=== PATIENT | male | born 1950 | race Caucasian/White ===

== ENCOUNTER 2017-09-10 05:47 | Inpatient (IN) | payer OTHER ==
[2017-09-10] MEDS ORDERED: LIDOCAINE 1% 2 ML INJ ONE (06:00)
[2017-09-10] MEDS ORDERED: TRANEXAMIC ACID 3,000 MG in NS 50 ML IRR ONE (06:00)
[2017-09-10] MEDS ORDERED: POVIDONE-IODINE 20 ML in SODIUM CL IRRIG SOLUTION 500 ML IRR ONE (06:00)
[2017-09-10] MEDS ORDERED: ROPIVACAINE 0.2% 80 MG, EPINEPHrine 0.2 MG, KETOROLAC TROMETHAMINE 30 MG in BAG 0 ML IU ONE (06:00)
[2017-09-10] MEDS ORDERED: ACETAMINOPHEN 325 MG TAB PO ONE (06:06)
[2017-09-10] MEDS ORDERED: ceFAZolin 2 GM/SWFI 2 GM/20 ML SYR IVP ONE (06:06)
[2017-09-10] MEDS ORDERED: FAMOTIDINE 20 MG TAB PO ONE (06:06)
[2017-09-10] MEDS ORDERED: DEXAMETHASONE 4 MG/ML VIAL IVP ONE (06:06)
[2017-09-10] MEDS ORDERED: LIDOCAINE 1% 2 ML INJ ID PRN (06:07)
[2017-09-10] MEDS ORDERED: LR 1,000 ML IV ONE (06:07)
[2017-09-10] MEDS ORDERED: VANCOMYCIN 1 GM VIAL ONE (06:55)
[2017-09-10] MEDS ORDERED: ceFAZolin 1 GM/5 ML SYR ONE (06:56)
[2017-09-10] MEDS ORDERED: MIDAZOLAM 2 MG/2 ML VIAL IVP ONE (07:03)
[2017-09-10] MEDS ORDERED: fentaNYL 100 MCG/2 ML INJ ONE (07:08)
--- NOTE | 2017-09-10 07:11 | PDHPUP ---
History & Physical Update H&P update statement: This history and physical update is based on an assessment of the patient which was completed after admission or registration (within 24 hours), but prior to the surgery/procedure. H&P update: H&P reviewed & patient examined, no change in patient's condition since H&P completed
[2017-09-10] MEDS ORDERED: PROPOFOL/EMULSION 500 MG/50 ML BOTTLE IV ONE (07:31)
[2017-09-10] MEDS ORDERED: ALBUTEROL 3 ML DEYVIAL IH PRN (08:19)
[2017-09-10] MEDS ORDERED: HYDROmorphONE/DILAUDID 1 MG/ML INJ IVP PRN (08:19)
[2017-09-10] MEDS ORDERED: fentaNYL 100 MCG/2 ML INJ IVP PRN (08:19)
[2017-09-10] MEDS ORDERED: NALOXONE HCL 0.4 MG/ML INJ IVP PRN (08:19)
[2017-09-10] MEDS ORDERED: ONDANSETRON 4 MG/2 ML VIAL IVP PRN ×2 (08:19→09:42)
[2017-09-10] MEDS ORDERED: PROMETHAZINE HCL 25 MG/ML INJ IVP PRN ×2 (08:19→09:42)
--- NOTE | 2017-09-10 08:19 | PDANEPAE ---
ANE History of Present Illness here for L TKA ANE Past Medical History - Cardiovascular History Hx Hypertension: Yes Hx Arrhythmias: Yes Hx Chest Pain: No Hx Coronary Artery / Peripheral Vascular Disease: Yes Hx CHF / Valvular Disease: No Hx Palpitations: No Cardiovascular History Comment: CARDIAC ARREST 2014. ICD IMPLANT 2014 - Pulmonary History Hx COPD: No Hx Asthma/Reactive Airway Disease: No Hx Recent Upper Respiratory Infection: No Hx Oxygen in Use at Home: No O2 in Use at Home (L/minute): O2 CONCENTRATOR NOC Hx Sleep Apnea: Yes Sleep Apnea Screening Result - Last Documented: Positive Pulmonary History Comment: SLEEP APNEA POS - Neurologic History Hx Cerebrovascular Accident: No Hx Seizures: No Hx Dementia: No - Endocrine History Hx Diabetes: No - Renal History Hx Renal Disorders: No - Liver History Hx Hepatic Disorders: No - Neurological & Psychiatric Hx Hx Neurological and Psychiatric Disorders: No - Cancer History Hx Cancer: No - Congenital Disorder History Hx Congenital Disorders: No - GI History Hx Gastrointestinal Disorders: Yes Gastrointestinal History Comment: GERD - Other Health History Other Health History: ECZEMA - Chronic Pain History Chronic Pain: No - Surgical History Prior Surgeries: SKULL HEMANGIOMA REMOVED. HERNIA L W/MESH. ELBOW FX REPAIR. ICD IMPLANTED 2014 ANE Review of Systems Review of systems is: negative Review of Systems: - Exercise capacity METS (RN): 4 METS - Pacemaker Pacemaker Type: Permanent Pacer/Defib Pacemaker Fax Machine Repairer: Medtronic Pacemaker Model: [id number] Date Pacemaker Last Checked: 08/10/17 ANE Patient History - Allergies Allergies/Adverse Reactions: esmolol Allergy (Verified 08/13/15 06:54) hydralazine Allergy (Verified 08/15/15 09:15) lisinopril Allergy (Verified 08/26/17 10:00) Swelling/neck,face,throat shellfish derived Allergy (Verified 08/26/17 10:00) - Home Medications Home Medications: [place]-3 Fatty Acids [Fish Oil 1000 mg (*)] 1,000 mg PO DAILY 08/09/15 [Last Taken 08/11/17] Aspirin [Aspirin 325 mg (*)] 325 mg PO DAILY 08/26/17 [Last Taken 09/05/17] Cyanocobalamin [Vitamin B12 (*)] 1,000 mcg PO DAILY 08/26/17 [Last Taken ] Herbals/Supplements -Info Only 1 ea PO DAILY 08/26/17 [Last Taken 09/03/17] Losartan Potassium [Cozaar 25 mg (*)] 25 mg PO DAILY 08/26/17 [Last Taken ] Omeprazole [Prilosec 20 mg] 40 mg PO DAILY 08/26/17 [Last Taken 09/10/17] - NPO status NPO Since - Liquids (Date): 09/09/17 NPO Since - Liquids (Time): 19:30 NPO Since - Solids (Date): 09/09/17 NPO Since - Solids (Time): 19:30 - Smoking Hx Smoking Status: Never smoked - Family Anes Hx Family Hx Anesthesia Complications: NEG ANE Labs/Vital Signs - Vital Signs Blood Pressure: 153/106 Heart Rate: 65 Respiratory Rate: 16 O2 Sat (%): 94 Height: 187.96 cm Weight: 97.522 kg ANE Physical Exam - Airway Neck exam: FROM Mallampati Score: Class 1 Mouth exam: normal dental/mouth exam - Pulmonary Pulmonary: no respiratory distress - Cardiovascular Cardiovascular: regular rate and rhythym - ASA Status ASA Status: III ANE Anesthesia Plan Anesthesia Plan: spinal Regional Anesthesia: adductor canal FNB
[2017-09-10] MEDS ORDERED: PROPOFOL 200 MG/20 ML VIAL ONE ×2 (08:35→09:21)
--- NOTE | 2017-09-10 09:23 | POSTOPPROG ---
Post Op Note Date of Operation: 09/10/17 Surgeon: [facility] Coordinator: Isaak Tena Anesthesiologist: Dr. Simba Mayorga Anesthesia: IV Sedation, Spinal Post-op Diagnosis: Left knee severe degenerative arthritis. Procedure: Left total knee arthroplasty. Inf/Abcess present in the surg proc area at time of surgery?: No EBL: 50-100 (Adductor canal block in PACU)
[2017-09-10] MEDS ORDERED: BISACODYL 10 MG SUPP PR PRN (09:42)
[2017-09-10] MEDS ORDERED: POLYETHYLENE GLYCOL 3350 17 GM PKT PO PRN (09:42)
[2017-09-10] MEDS ORDERED: METOCLOPRAMIDE 10 MG/2 ML VIAL IVP PRN (09:42)
[2017-09-10] MEDS ORDERED: MAGNESIUM HYDROXIDE 30 ML UDCUP PO PRN (09:42)
[2017-09-10] MEDS ORDERED: oxyCODONE IR 5 MG TAB PO PRN (09:42)
[2017-09-10] MEDS ORDERED: PROMETHAZINE HCL 25 MG SUPPR PR PRN (09:42)
[2017-09-10] MEDS ORDERED: ONDANSETRON DISINTEGRATING 4 MG TAB PO PRN (09:42)
[2017-09-10] MEDS ORDERED: traMADol 50 MG TAB PO PRN (09:42)
[2017-09-10] MEDS ORDERED: TEMAZEPAM 15 MG CAP PO PRN (09:42)
[2017-09-10] MEDS ORDERED: NS 500 ML IV PRN (09:42)
[2017-09-10] MEDS ORDERED: LACTULOSE 20 GM/30 ML UDCUP PO PRN (09:42)
[2017-09-10] MEDS ORDERED: DIPHENOXYLATE/ATROPINE LOMOTIL 1 TAB PO PRN (09:42)
[2017-09-10] MEDS ORDERED: diphenhydrAMINE 25 MG CAP PO PRN (09:42)
[2017-09-10] MEDS ORDERED: KETOROLAC 30 MG/1 ML SDV IVP PRN (09:42)
[2017-09-10] MEDS ORDERED: CYCLOBENZAPRINE 10 MG TAB PO PRN (09:42)
[2017-09-10] MEDS ORDERED: LR 1,000 ML IV SCH (10:00)
--- NOTE | 2017-09-10 10:34 | POSTANESTH ---
Post Anesthetic Evaluation Cardiovascular Status: Normal, Stable Respiratory Status: Normal, Stable Level of Consciousness/Mental Status: Can Participate in Eval Pain Control: Adequate, Prn Tx Ordered Nausea/Vomiting Control: Adequate, Prn Tx Ordered Complications Possibly Related to Anesthesia: None Noted
--- NOTE | 2017-09-10 11:24 | GOP ---
[f rep st] OPERATIVE REPORT DATE OF OPERATION: 09/10/2017 SURGEON: Jason Garrett MD EMPLOYEE ADVISER: JACK Snider CFA. ANESTHESIA: A combination of Marcaine, spinal, IV sedation, and adductor canal block by Simba Mayorga MD. PREOPERATIVE DIAGNOSIS: Left knee severe degenerative arthritis with varus deformity. POSTOPERATIVE DIAGNOSIS: Left knee severe degenerative arthritis with varus deformity. PROCEDURE PERFORMED: Left total knee arthroplasty. Loredo and Nephew Jourrosie 2 FINDINGS: DESCRIPTION OF PROCEDURE: The patient was given 2 g of preoperative IV Ancef within 60 minutes of surgery. Because of his history of coronary artery disease , I did not use IV tranexamic acid. He was placed on the operating room table and given spinal anesthesia with Marcaine by Dr. Mayorga. He was then placed supine and given IV sedation. A Macedo catheter was not used. A SHMUEL stocking and SCD were placed on the nonoperative leg. A bolster was placed under the left hip to prevent excessive external rotation. His left lower extremity was prepped with ChloraPrep from the upper thigh tourniquet to the tips of the toes. It was draped free using sterile sheets, stockinette, and Ioban plastic adhesive drape. His lower leg was wrapped with compressive Coban. The leg was exsanguinated with elevation and a 6-inch compressive wrap, and the pneumatic tourniquet was inflated to 275 mmHg. The World Health Organization time-out was performed to verify the correct patient identity and the correct surgical side and site. The [place] time-out was also performed. The [employer] leg holding device was sterilely attached to the operating room table and used throughout the procedure to help position the knee. A straight midline incision was made centered on the patella. Subcutaneous tissues were sharply divided, and hemostasis was obtained using electrocautery. A medial subcutaneous flap was developed, and capsule and synovium were opened in a median parapatellar fashion. Very extensive degenerative changes were present, particularly in the medial compartment. He had deep erosions on the medial tibial plateau and medial femoral condyle. Large osteophytes were present along the periphery of the tibial plateau and the medial femoral condyle. The medial capsule and periosteum were elevated off the rim of the medial tibial plateau, all the way around to the posteromedial corner. I performed a fairly aggressive medial collateral ligament release in order to balance the varus deformity on the medial side of his knee. In order to improve exposure, the patella was prepared first. The original thickness of the patella was measured. Peripheral osteophytes removed. I cut a flat surface on the back of the patella. It was sized for a 38 mm resurfacing component. I removed enough bone from the patella such that the remaining bone, plus the thickness of the patellar component, recreated the original thickness of the patella. The composite thickness was 26 mm. The intramedullary alignment guide system was used to set up the distal femoral cut. The distal femur was cut in 5 degrees of valgus. Because of a substantial preoperative flexion contracture, I made a +2 mm cut on the distal femur. The sizing jig was used to determine proper femoral sizing. I shifted the size 8 jig anteriorly 1 mm in order to accommodate the size 8 without notching the anterior cortex. The 5-in-1 cutting block was applied, and the anterior and posterior condylar cuts and chamfer cuts were made. The final jig was used to remove the central portion of the distal femur to accommodate the posterior-stabilized femoral component. I was careful to determine proper rotation by referencing off [place] line. Each cut was checked for accuracy before and after it was made. The femur was sized for a size 8 posterior- stabilized component. The trial component was tapped securely into place and was a good fit. Next, the tibia was prepared. The proximal tibial cut was made using the extramedullary alignment guide system. The cut was made in a few degrees of posterior slope. I was careful to achieve proper varus/valgus alignment and proper rotation. Because of the erosion on the medial tibial plateau, I made the most minimal cut on the medial side. Posterior compartment was cleared of meniscal remnants. Osteophytes were removed from the back of the femoral condyles. I removed a couple small loose bodies from the posterior compartment. I checked the flexion and extension gaps, and they were equal, balanced, and rectangular. The tibia was sized for a size 7 component. With the trial components in place , I selected a 10 mm polyethylene posterior-stabilized tibial insert. The knee came to full extension and flexed to 130 degrees. There was no overstuffing in flexion. His collateral ligaments were stable and balanced in 90 degrees of flexion and full extension. The trial patellar button was applied, and patellar tracking was checked. He had a slight tendency for lateral tilt. I performed a minimal lateral release. 40 mL of the joint anesthetic cocktail was injected into the posterior capsule, the periarticular structures, the quadriceps muscle and tendon area, and the subcutaneous tissues along the skin edges. A 20 mL tranexamic acid preparation was injected into the joint and left for a few minutes. The surfaces were prepared for cementing. They were carefully cleaned with the pulsating lavage irrigation and thoroughly dried. The CarboJet device was used to blow dry the cancellous surfaces. A double batch of high-viscosity methylmethacrylate cement with 2 g of powdered vancomycin added was mixed. While it was still in a semi liquid state, all [address] components were cemented in place. Excess cement was removed before it hardened. The 10 mm tibial insert was inserted and locked into place. The tourniquet was deflated. Total tourniquet time was 67 minutes. Another 20 cc of the tranexamic acid solution was injected into the knee and left in place for a few minutes. One final irrigation was performed with a dilute Betadine solution. The vastus medialis portion of the extensor mechanism was repaired with several interrupted [id number] #2 FiberWire sutures. The capsule and synovium were closed, first with multiple interrupted [id number] 0 PDS sutures, followed by a running #2 barbed Ethicon Stratafix PDO suture. Subcutaneous tissues were closed with a running 0 barbed Ethicon Stratafix Monoderm suture. The skin was closed with a running 3-0 barbed Ethicon Stratafix Monoderm subcuticular suture. The skin was sealed with half-inch Steri-Strips. The wound was covered with Xeroform gauze and flat 4x4s, and the knee was wrapped with Kerlix and a 6-inch compressive wrap. A long-leg SHMUEL stocking and SCD were applied followed by the cooling device. He wore a stocking and SCD on the opposite leg during the procedure. I used a size 8 cemented Loredo and Nephew Oxinium posterior-stabilized femoral component, a size 7 cemented tibial base plate, a 10 mm posterior-stabilized tibial insert, and a 38 mm cemented round all-polyethylene resurfacing patellar component. The estimated blood loss following deflation of the tourniquet was about 100 mL. The sponge and needle count were correct on 2 occasions. He was awakened from anesthesia, transferred to his [facility], and taken to PACU in satisfactory condition. There were no recognized intraoperative complications. In the PACU, for additional postoperative pain control, Dr. Simba Mayorga performed an adductor canal block. Lavelle Galeas and Benito Tena acted as surgical assistants. Their assistance was a medical necessity for safe completion of the procedure. POSTOPERATIVE DIAGNOSIS: Left knee severe degenerative arthritis with varus deformity. OPERATIONS PERFORMED: Left total knee arthroplasty, cemented, posterior stabilized, Loredo and Nephew Journey II. /[id number]/MODL MTDD
[2017-09-10] MEDS: ACETAMINOPHEN 325 MG TAB PO SCH ×3 (11:39→23:50)
--- NOTE | 2017-09-10 14:31 | ASMTCMCOM ---
CM Note CM Note Notes: Patient is POD #[address] Garrett. He has worked with PT/OT and will likely discharge home with no case management needs. He has outpatient PT scheduled. Lives with who is an RN. CM available if needs change. Date Signed: 09/10/2017 02:30 PM Electronically Signed By:Dennise Gaviria RN
[2017-09-10] MEDS: ceFAZolin 2 GM/DEXTROSE 100 ML IV SCH ×2 (15:36→23:50)
[2017-09-10] MEDS: ASPIRIN 325 MG TAB PO SCH (20:27)
[2017-09-10] MEDS: SENNOSIDES/DOCUSATE SODIUM TAB PO SCH (20:28)
[2017-09-10] MEDS: FAMOTIDINE 20 MG TAB PO SCH (20:29)
[2017-09-11 04:35] VITALS: O2SAT 96
[2017-09-11] MEDS: ACETAMINOPHEN 325 MG TAB PO SCH (06:16)
[2017-09-11 07:44] VITALS: BP 136/86; PULSE 71; RESP 20; TEMP 97.9
[2017-09-11] MEDS: ASPIRIN 325 MG TAB PO SCH (08:44)
[2017-09-11] MEDS: SENNOSIDES/DOCUSATE SODIUM TAB PO SCH (08:46)
[2017-09-11] MEDS: FAMOTIDINE 20 MG TAB PO SCH (08:47)
[2017-09-11] MEDS ORDERED: PANTOPRAZOLE SODIUM 40 MG TAB PO SCH (09:00)
[2017-09-11] MEDS ORDERED: ATORVASTATIN CALCIUM 40 MG TAB PO SCH (09:00)
[2017-09-11] MEDS ORDERED: NEBIVOLOL HCL 5 MG TAB PO SCH (09:00)
[2017-09-11] MEDS ORDERED: FERROUS SULFATE 140 MG TAB.ER PO SCH (09:00)
[2017-09-11] MEDS ORDERED: LOSARTAN POTASSIUM 25 MG TAB PO SCH (09:00)
[2017-09-11] MEDS ORDERED: NON-FORMULARY NEW DRUG (Omeprazole [Prilosec 20 Mg] 40 MG) PO SCH (09:00)
--- NOTE | 2017-09-11 09:52 | SOAPPROG ---
SOAP Progress Note Assessment/Plan: Assessment: Afebrile. Awake and alert. He has been walking in the [place] and has completed stairs. His dressing is dry. He lacks a couple of degrees of full extension and flexes to 90 degrees. H&H are good. He required straight catheterization 1 time last night, but he has been voiding spontaneously since then. Plan: Standing full-length alignment film. Discharged later today. 09/11/17 09:51 Objective: Vital Signs Temp Pulse Resp BP Pulse Ox 36.6 C 71 20 136/86 H 96 09/11/17 07:43 09/11/17 07:43 09/11/17 07:43 09/11/17 07:43 09/11/17 07:43 Laboratory Results 09/11/17 04:38 09/10/17 09/11/17 09/12/17 05:59 05:59 05:59 Intake Total 2515 Output Total 1250 Balance 1265 ICD10 Worksheet Patient Problems: Problems Problem Status Onset Osteoarthritis of left knee Acute CAD (coronary artery disease) Acute Cardiac arrest Acute SHANNAN (obstructive sleep apnea) Acute
--- NOTE | 2017-09-11 10:18 | GDS ---
[f rep st] DISCHARGE SUMMARY ADMISSION DIAGNOSIS: Left knee severe degenerative arthritis with varus deformity. DISCHARGE DIAGNOSIS: Left knee severe degenerative arthritis with varus deformity. OPERATION PERFORMED: September 10, 2017, left total knee arthroplasty. POSTOPERATIVE COMPLICATIONS: None. CONDITION ON DISCHARGE: Improved. DESCRIPTION OF HOSPITAL COURSE: The patient was admitted to the hospital on the morning of surgery. His admission CBC, electrolytes, BUN, and creatinine were normal. The same day, under combination o f Marcaine, spinal, IV sedation, and adductor canal block, he underwent a left total knee arthroplast y. Postoperatively he required straight catheterization 1 time. He was able to void spontaneously a fter that. He was treated with multimodal DVT prophylaxis, including aspirin and early mobilization. On the first postoperative day, his hemoglobin and hematocrit were 11.6 and 32.5. He was seen by P hysical Therapy and made excellent progress with ambulation, stairs, and knee range of motion. By th e time of discharge, he was afebrile and was independent walking with a walker. DISPOSITION: Patient discharged to his home. He will go to outpatient physical therapy at my office next week. Continue aspirin 325 mg p.o. daily. He was on this preoperatively for his cardiac risk. I will see him back in the office on 09/20/2017. If any problems, he is to call me at the office. /[id number]/MODL
--- NOTE | 2017-09-11 12:02 | ASDISCHSUM ---
Discharge Information Plan Status:Home with No Needs Medically Cleared to Leave: Discharge Date:09/11/2017 11:00 AM CM D/C Disposition:Home, Routine, Self-Care ADT D/C Disposition:Home, Routine, Self-Care Projected Discharge Date:09/11/2017 11:00 AM Transportation at D/C: Discharge Delay Reason: Follow-Up Date:09/11/2017 11:00 AM Discharge Slot: Final Diagnosis: Placement Information Patient Contact Information Contact Name:BETH Relationship: Address:[address] City:[place] Alternate Phone: [facility]/Zip Code:[place] [address] Email: Financial Information Financial Class: Primary Plan Desc:MEDICARE INPATIENT Primary Plan Number:[id number] Secondary Plan Desc:TAL Secondary Plan Number:[id number] Assessment Information CM Detail Assembler Assessment CM Note CM Note Notes: Yves is planning to discharge home independently from the hospital. He has a supportive who is able to care for him and drive him to outpatient therapies. Yves said he does not want to pursue home care, so he has made arrangements for outpatient therapy with the office next to Dr. Mathur'. His surgery time is 07:15, and he is hoping to discharge the same day, but understands that is a decision Dr. Garrett and his medical team will make along side PT/OT. Yves has rented the [employer] Ice Machine that Dr. Garrett recommended. Date Signed: 09/05/2017 11:13 AM Electronically Signed By:Lana Marino [facility] CM Progress Note CM Note CM Note Notes: Patient is POD #[address] Garrett. He has worked with PT/OT and will likely discharge home with no case management needs. He has outpatient PT scheduled. Lives with who is an RN. CM available if needs change. Date Signed: 09/10/2017 02:30 PM Electronically Signed By:Dennise Gaviria RN Intervention Information
--- NOTE | 2017-09-11 12:02 | ASDISCHSUM ---
Discharge Information Plan Status:Home with No Needs Medically Cleared to Leave: Discharge Date:09/11/2017 11:00 AM CM D/C Disposition:Home, Routine, Self-Care ADT D/C Disposition:Home, Routine, Self-Care Projected Discharge Date:09/11/2017 11:00 AM Transportation at D/C: Discharge Delay Reason: Follow-Up Date:09/11/2017 11:00 AM Discharge Slot: Final Diagnosis: Placement Information Patient Contact Information Contact Name:BETH Relationship: Address:[address] City:[place] Alternate Phone: [facility]/Zip Code:[place] [address] Email: Financial Information Financial Class: Primary Plan Desc:MEDICARE INPATIENT Primary Plan Number:[id number] Secondary Plan Desc:TAL Secondary Plan Number:[id number] Assessment Information 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 He has a supportive who is able to care for him and drive him to outpatient therapies. Yves said he does not want to pursue home care, so he has made arrangements for outpatient therapy with the office next to Dr. Mathur'. His surgery time is 07:15, and he is hoping to discharge the same day, but understands that is a decision Dr. Garrett and his medical team will make along side PT/OT. Yves has rented the [employer] Ice Machine that Dr. Garrett recommended. Date Signed: 09/05/2017 11:13 AM Electronically Signed By:Lana Marino [facility] CM Progress Note CM Note CM Note Notes: Patient is POD #[address] Garrett. He has worked with PT/OT and will likely discharge home with no case management needs. He has outpatient PT scheduled. Lives with who is an RN. CM available if needs change. Date Signed: 09/10/2017 02:30 PM Electronically Signed By:Dennise Gaviria RN Intervention Information
--- NOTE | 2017-09-11 12:02 | ASDISCHSUM ---
Discharge Information Plan Status:Home with No Needs Medically Cleared to Leave: Discharge Date:09/11/2017 11:00 AM CM D/C Disposition:Home, Routine, Self-Care ADT D/C Disposition:Home, Routine, Self-Care Projected Discharge Date:09/11/2017 11:00 AM Transportation at D/C: Discharge Delay Reason: Follow-Up Date:09/11/2017 11:00 AM Discharge Slot: Final Diagnosis: Placement Information Patient Contact Information Contact Name:BETH Relationship: Address:[address] City:[place] Alternate Phone: [facility]/Zip Code:[place] [address] Email: Financial Information Financial Class: Primary Plan Desc:MEDICARE INPATIENT Primary Plan Number:[id number] Secondary Plan Desc:TAL Secondary Plan Number:[id number] Assessment Information CM Staff [employer] Information [employer] Officer Assessment CM Note CM Note Notes: Yves is planning to discharge home independently from the hospital. He has a supportive who is able to care for him and drive him to outpatient therapies. Yves said he does not want to pursue home care, so he has made arrangements for outpatient therapy with the office next to Dr. Mathur'. His surgery time is 07:15, and he is hoping to discharge the same day, but understands that is a decision Dr. Garrett and his medical team will make along side PT/OT. Yves has rented the [employer] Ice Machine that Dr. Garrett recommended. Date Signed: 09/05/2017 11:13 AM Electronically Signed By:Lana Marino [facility] CM Progress Note CM Note CM Note Notes: Patient is POD #[address] Garrett. He has worked with PT/OT and will likely discharge home with no case management needs. He has outpatient PT scheduled. Lives with who is an RN. CM available if needs change. Date Signed: 09/10/2017 02:30 PM Electronically Signed By:Dennise Gaviria RN Intervention Information
== END 2017-09-11 11:00 | disposition home or self-care (01) | DRG 470 ==
LOC: F3N 05:47
PROVIDERS: ADMIT Orthopaedic Surgery; ATTEND Orthopaedic Surgery
PROC: 0SRD0J9 Replacement of Left Knee Joint with Synthetic Substitute, Cemented, Open Approach (ICD-10-PCS; principal; 2017-09-10 07:15)
DX: M17.0 Bilateral primary osteoarthritis of knee (principal); I25.10 Atherosclerotic heart disease of native coronary artery without angina pectoris; Z95.0 Presence of cardiac pacemaker; I10 Essential (primary) hypertension; E78.5 Hyperlipidemia, unspecified; G47.33 Obstructive sleep apnea (adult) (pediatric); I25.2 Old myocardial infarction
CPT/HCPCS: 97116-GP; 97161-GP; 97165-GO; 97530-GP; C1713; G8978-GP-CJ; G8979-GP-CI; G8980-GP-CI; G8987-GO-CI; G8988-GO-CI; G8989-GO-CI; J0171; J0690; J1100; J1885; J2250; J2704; J2795; J3010; J3370

== ENCOUNTER → 2017-09-25 | Outpatient (CLI) | payer OTHER | LOC: FIMAGING 14:44 | PROVIDERS: ATTEND Physician Assistant | DX: M96.840 Postprocedural hematoma of a musculoskeletal structure following a musculoskeletal system procedure (principal) ==

== ENCOUNTER 2017-11-06 05:49 | Inpatient (IN) | payer OTHER ==
[2017-11-06] MEDS ORDERED: FAMOTIDINE 20 MG TAB PO ONE (05:52)
[2017-11-06] MEDS ORDERED: DEXAMETHASONE 4 MG/ML VIAL IVP ONE (05:52)
[2017-11-06] MEDS ORDERED: ceFAZolin 2 GM/SWFI 2 GM/20 ML SYR IVP ONE (05:52)
[2017-11-06] MEDS ORDERED: GABAPENTIN 300 MG CAP PO ONE (05:52)
[2017-11-06] MEDS ORDERED: ACETAMINOPHEN 325 MG TAB PO ONE (05:52)
[2017-11-06] MEDS ORDERED: LIDOCAINE 1% 2 ML INJ ID PRN (05:53)
[2017-11-06] MEDS ORDERED: LR 1,000 ML IV ONE (05:53)
[2017-11-06] MEDS ORDERED: POVIDONE-IODINE 20 ML in SODIUM CL IRRIG SOLUTION 500 ML IRR ONE (06:00)
[2017-11-06] MEDS ORDERED: ROPIVACAINE 0.2% 80 MG, EPINEPHrine 0.2 MG, KETOROLAC TROMETHAMINE 30 MG in BAG 0 ML IU ONE (06:00)
[2017-11-06] MEDS ORDERED: PHENYLEPHRINE 10 MG/ML SDV ONE (06:48)
[2017-11-06] MEDS ORDERED: MIDAZOLAM 2 MG/2 ML VIAL ONE (06:48)
[2017-11-06] MEDS ORDERED: LIDOCAINE 2% 5 ML SDV ONE (06:48)
[2017-11-06] MEDS ORDERED: PROPOFOL/EMULSION 500 MG/50 ML BOTTLE IV ONE (06:49)
[2017-11-06] MEDS ORDERED: VANCOMYCIN 1 GM VIAL ONE (06:49)
[2017-11-06] MEDS ORDERED: ceFAZolin 1 GM/5 ML SYR ONE (06:51)
[2017-11-06 07:01] LABS: PLATELET COUNT 154 10^3/uL (150-400)
[2017-11-06] MEDS ORDERED: TRANEXAMIC ACID 1 MG in NS 100 ML IV ONE (07:20)
--- NOTE | 2017-11-06 08:08 | POSTANESTH ---
Post Anesthetic Evaluation Respiratory Status: Normal, Stable Level of Consciousness/Mental Status: Can Participate in Eval Pain Control: Adequate, Prn Tx Ordered Nausea/Vomiting Control: Adequate, Prn Tx Ordered Complications Possibly Related to Anesthesia: None Noted
--- NOTE | 2017-11-06 08:08 | PDANEPAE ---
ANE History of Present Illness 67 year old male for right total knee replacement, ANE Past Medical History - Cardiovascular History Hx Hypertension: Yes Hx Arrhythmias: Yes Hx Chest Pain: No Hx Coronary Artery / Peripheral Vascular Disease: Yes Hx CHF / Valvular Disease: No Hx Palpitations: No Cardiovascular History Comment: CARDIAC ARREST 2014. ICD IMPLANT 2014 - Pulmonary History Hx COPD: No Hx Asthma/Reactive Airway Disease: No Hx Recent Upper Respiratory Infection: No Hx Oxygen in Use at Home: No O2 in Use at Home (L/minute): 2 Hx Sleep Apnea: Yes Sleep Apnea Screening Result - Last Documented: Positive Pulmonary History Comment: SLEEP APNEA POS - Neurologic History Hx Cerebrovascular Accident: No Hx Seizures: No Hx Dementia: No - Endocrine History Hx Diabetes: No - Renal History Hx Renal Disorders: No - Liver History Hx Hepatic Disorders: No - Neurological & Psychiatric Hx Hx Neurological and Psychiatric Disorders: No - Cancer History Hx Cancer: No - Congenital Disorder History Hx Congenital Disorders: No - GI History Hx Gastrointestinal Disorders: Yes Gastrointestinal History Comment: GERD - Other Health History Other Health History: ECZEMA - Chronic Pain History Chronic Pain: No - Surgical History Prior Surgeries: SKULL HEMANGIOMA REMOVED. HERNIA L W/MESH. ELBOW FX REPAIR. ICD IMPLANTED 2014 ANE Review of Systems Review of Systems: - Exercise capacity METS (RN): 4 METS - Pacemaker Pacemaker Type: Permanent Pacer/Defib Pacemaker Grout Machine Tender: [employer] Date Pacemaker Last Checked: today in preop ANE Patient History - Allergies Allergies/Adverse Reactions: esmolol Allergy (Verified 08/13/15 06:54) hydralazine Allergy (Verified 08/15/15 09:15) lisinopril Allergy (Verified 08/26/17 10:00) Swelling/neck,face,throat shellfish derived Allergy (Verified 08/26/17 10:00) tramadol Allergy (Verified 10/15/17 12:07) - Home Medications Home Medications: [place]-3 Fatty Acids [Fish Oil 1000 mg (*)] 1,000 mg PO DAILY 08/09/15 [Last Taken 10/30/17] Aspirin [Aspirin 325 mg (*)] 325 mg PO DAILY 08/26/17 [Last Taken 11/01/17] Cyanocobalamin [Vitamin B12 (*)] 1,000 mcg PO DAILY 08/26/17 [Last Taken ] Herbals/Supplements -Info Only 1 ea PO DAILY 08/26/17 [Last Taken 10/30/17] Losartan Potassium [Cozaar 25 mg (*)] 25 mg PO DAILY 08/26/17 [Last Taken 04:30] Omeprazole [Prilosec 20 mg] 40 mg PO DAILY06 08/26/17 [Last Taken 11/06/17 04:30 ] - NPO status NPO Since - Liquids (Date): 11/05/17 NPO Since - Liquids (Time): 19:30 NPO Since - Solids (Date): 11/05/17 NPO Since - Solids (Time): 19:30 - Smoking Hx Smoking Status: Never smoked - Family Anes Hx Family Hx Anesthesia Complications: NEG ANE Labs/Vital Signs - Labs Result Diagrams: 11/06/17 06:48 - Vital Signs Blood Pressure: 146/95 Heart Rate: 67 Respiratory Rate: 16 O2 Sat (%): 96 Height: 186.69 cm Weight: 97.522 kg ANE Physical Exam - Airway Mouth exam: normal dental/mouth exam - Pulmonary Pulmonary: no respiratory distress - Cardiovascular Cardiovascular: regular rate and rhythym - ASA Status ASA Status: III ANE Anesthesia Plan Anesthesia Plan: spinal Regional Anesthesia: continuous NB
[2017-11-06] MEDS ORDERED: ROPIVACAINE HCL 150 MG/30 ML INJ ONE (08:58)
--- NOTE | 2017-11-06 09:08 | POSTOPPROG ---
Post Op Note Date of Operation: 11/06/17 Surgeon: Jason Garrett Tooth Cutter: Lavelle Galeas/Benito Tena Anesthesiologist: Gregorio Anesthesia: IV Sedation, Spinal Post-op Diagnosis: Right knee advanced degenerative arthritis Procedure: Right total knee arthroplasty Inf/Abcess present in the surg proc area at time of surgery?: No EBL: 50-100 (Adductor canal block with indwelling catheter in PACU)
[2017-11-06] MEDS ORDERED: CYCLOBENZAPRINE 10 MG TAB PO PRN (09:18)
[2017-11-06] MEDS ORDERED: MAGNESIUM HYDROXIDE 30 ML UDCUP PO PRN (09:18)
[2017-11-06] MEDS ORDERED: DIPHENOXYLATE/ATROPINE LOMOTIL 1 TAB PO PRN (09:18)
[2017-11-06] MEDS ORDERED: diphenhydrAMINE 25 MG CAP PO PRN (09:18)
[2017-11-06] MEDS ORDERED: POLYETHYLENE GLYCOL 3350 17 GM PKT PO PRN (09:18)
[2017-11-06] MEDS ORDERED: TEMAZEPAM 15 MG CAP PO PRN (09:18)
[2017-11-06] MEDS ORDERED: BISACODYL 10 MG SUPP PR PRN (09:18)
[2017-11-06] MEDS ORDERED: NS 500 ML IV PRN (09:18)
[2017-11-06] MEDS ORDERED: ONDANSETRON 4 MG/2 ML VIAL IVP PRN (09:18)
[2017-11-06] MEDS ORDERED: KETOROLAC 30 MG/1 ML SDV IVP PRN (09:18)
[2017-11-06] MEDS ORDERED: oxyCODONE IR 5 MG TAB PO PRN (09:18)
[2017-11-06] MEDS ORDERED: ONDANSETRON DISINTEGRATING 4 MG TAB PO PRN (09:18)
[2017-11-06] MEDS ORDERED: PROMETHAZINE HCL 25 MG SUPPR PR PRN (09:18)
[2017-11-06] MEDS ORDERED: METOCLOPRAMIDE 10 MG/2 ML VIAL IVP PRN (09:18)
[2017-11-06] MEDS ORDERED: PROMETHAZINE HCL 25 MG/ML INJ IVP PRN (09:18)
[2017-11-06] MEDS ORDERED: LACTULOSE 20 GM/30 ML UDCUP PO PRN (09:18)
[2017-11-06] MEDS ORDERED: LR 1,000 ML IV SCH (09:30)
--- NOTE | 2017-11-06 10:07 | GOP ---
[f rep st] OPERATIVE REPORT DATE OF OPERATION: 11/06/2017 SURGEON: Jason Garrett MD POSTAL CARRIER: Lavelle Galeas and Benito Tena. ANESTHESIA: A combination of Marcaine, spinal, IV sedation, and adductor canal block with indwelling catheter. ANESTHESIOLOGIST: Dr. Wyatt Perkins. PREOPERATIVE DIAGNOSIS: Right knee severe degenerative arthritis with varus deformity. POSTOPERATIVE DIAGNOSIS: Right knee severe degenerative arthritis with varus deformity. PROCEDURE PERFORMED: Right total knee arthroplasty, cemented, Loredo and Nephew Journey II, posterior stabilized. FINDINGS: DESCRIPTION OF PROCEDURE: The patient was given 2 g of IV Ancef preoperatively within 60 minutes of surgery. I did not use tranexamic acid because of his history of coronary artery disease. He was pl aced on the operating room table and given spinal anesthesia with Marcaine by Dr. Perkins. He was t hen placed supine and given IV sedation. A Macedo catheter was not used. He wore a SHMUEL stocking and SCD on the nonoperative leg. A bolster was placed under the right hip to prevent excessive external rotation. His right lower extremity was prepped with ChloraPrep from the upper thigh tourniquet to t he tips of the toes. It was draped free using sterile sheets, stockinette, and Ioban plastic adhesiv e drape. The lower leg was wrapped with compressive Coban. The leg was exsanguinated with elevation and a 6-inch compressive wrap, and the pneumatic tourniquet was inflated to 300 mmHg. The World Health Organization time-out was performed to verify the correct patient identity and the c orrect surgical side and site. The Foster time-out was also performed. The Gigaomayo leg holding device was sterilely attached to the operating room table and used throughout the procedure to help position the knee. A straight midline incision was made centered on the patell a. Subcutaneous tissues were sharply divided and hemostasis was obtained using electrocautery. A me dial subcutaneous flap was developed and the capsule and synovium were opened in a medial parapatella r fashion. Extensive degenerative changes were present in the medial compartment with some erosion o f the medial tibial plateau as well as in the patellofemoral joint. The medial capsule and periosteu m were elevated off the rim of the medial tibial plateau all the way around to the posteromedial corn er. I did a moderately aggressive medial release due to the preoperative varus deformity. In order to improve exposure, his patella was prepared first. The original thickness of the patella was measured. Peripheral osteophytes were removed. I cut a flat surface on the back of the patella. It was sized for a 41 mm resurfacing component. I removed enough bone from the patella such that t he remaining bone plus the thickness of the patellar component recreated the original thickness of th e patella. The composite thickness was 26 mm. The intramedullary alignment guide system was used to set up the distal femoral cut. The distal femu r was cut in 5 degrees of valgus. Because of a preoperative flexion contracture, I made a +2 mm cut on the distal femur. The sizing jig was used to determine proper femoral sizing. He was a true size 8 without a shift. The 5-in-1 cutting block was applied, and the anterior and posterior condylar cu ts and chamfer cuts were made. The final jig was used to remove the central portion of the distal fe mur to accommodate the posterior stabilized femoral component. I was careful to determine proper rot ation by referencing off Whitesides line and other bony landmarks. Each cut was checked for accuracy before and after it was made. The femur was sized for a size 8 posterior stabilized component. The trial component was tapped securely into place and was an excellent fit. Next, the tibia was prepared. The proximal tibial cut was made using the extramedullary alignment gu shanta system. The cut was made in a few degrees of posterior slope. I was careful to achieve proper v arus valgus alignment and proper rotation. The posterior compartment was cleared of meniscal remnant s. Osteophytes were removed from the back of the femoral condyles. I checked the flexion extension gaps, and they were equal, balanced and rectangular. The tibia was sized for a size 8 component. Wi th the trial components in place, I selected a 10 mm polyethylene posterior stabilized tibial insert. The knee came to full extension and flexed to 130 degrees. There was no overstuffing in flexion. The collateral ligaments were stable and balanced in 90 degrees of flexion and full extension. The t rial patellar button was applied and tracking was checked. He had a slight lateral parapatellar tigh tness. I did a very limited lateral release. After that, tracking was excellent without any digital pressure. 40 mL of the joint anesthetic cocktail were injected into the posterior capsule, the periarticular st ructures, the quadriceps muscle and tendon areas, and the subcutaneous tissues along the skin edges. The surfaces were prepared for cementing. They were carefully cleaned with the pulsating lavage irri gation and thoroughly dried. The CarboJet device was used to blow dry the cancellous surfaces. A do uble batch of high viscosity methylmethacrylate cement with 2 g of powdered vancomycin added was mixe d. While it was still in a doughy state, all [address] components were cemented in place. Excess cement was removed before it hardened. The 10 mm trial tibial insert was re-tried and was the proper thickness. The actual component was in serted and locked into place. The knee was thoroughly irrigated one final time with a dilute Betadin e solution. The tourniquet was deflated. Total tourniquet time was 46 minutes. The vastus medialis portion of the extensor mechanism was repaired with several interrupted figure-of -eight #2 FiberWire sutures. The capsule and synovium were closed first with multiple interrupted fig [id number] PDS sutures, followed by a running #2 barbed Ethicon Stratafix PDO suture. The subcut aneous tissues were closed with a running 0 barbed Ethicon Stratafix Monoderm suture. The skin was c losed with a running 3-0 barbed Ethicon Stratafix Monoderm subcuticular suture. The skin was sealed with half-inch Steri-Strips. The wound was covered with a large sterile Mepilex waterproof dressing and a 6-inch compressive wrap. A long-leg SHMUEL stocking and SCD were applied followed by the cooling device. The patient wore a stocking and SCD on the opposite leg during the procedure. I used a size 8 cemented Loredo and Nephew Oxinium posterior stabilized femoral component, a size 8 ce mented tibial baseplate, a 10 mm posterior stabilized tibial insert and a 41 mm cemented round all-po lyethylene resurfacing patellar component. The estimated blood loss following inflation of the tourniquet was about 100 cc. The sponge and needle count were correct on 2 occasions. He was awakened from anesthesia, transferred to his [facility] and taken to PACU in satisfactory condition. There were no recognized intraoperative complications. In the PACU, for additional post operative pain control, Dr. Perkins. Performed an adductor canal block with an indwelling catheter. Lavelle Galeas and Benito Tena acted as surgical assistants. Their assistance was a medical necess ity. /[id number]/MODL
[2017-11-06] MEDS: ACETAMINOPHEN 325 MG TAB PO SCH ×2 (12:13→17:57)
[2017-11-06] MEDS: ceFAZolin 2 GM/DEXTROSE 100 ML IV SCH ×2 (15:29→21:29)
--- NOTE | 2017-11-06 15:29 | WOCRNPDOC ---
WOCRN Advanced Assessment Note - Skin Integrity Problem, Advanced Assess Coccyx Rash (raised) Dressing Type: Open to Air Integumentary Issue Intervention: Barrier Cream Applied (antifungal) Site Measurement - Head-to-Toe Length X Width X Depth (cm): 3.8x1.9x0 Skin Integrity Problem Comment: Raised "ring" of erythema with a scaly crust. This surrounds a less erythematic center of erythema. Entire area is non blanching, however this is not a pressure injury. Patient has no pain and the ring of crust is atypical. Uknown etiology but asserts that the patient has psoriasis outbreaks in this area. Antifungal barrier cream was applied. Wound care will sign off. HAMILTON Horn in room for care.
[2017-11-06] MEDS: ASPIRIN EC 325 MG TAB PO SCH (21:29)
[2017-11-06] MEDS: FAMOTIDINE 20 MG TAB PO SCH (21:30)
[2017-11-06] MEDS: SENNOSIDES/DOCUSATE SODIUM TAB PO SCH (21:30)
[2017-11-07] MEDS: ACETAMINOPHEN 325 MG TAB PO SCH ×2 (00:16→05:58)
[2017-11-07] MEDS ORDERED: PANTOPRAZOLE SODIUM 40 MG TAB PO SCH (06:00)
[2017-11-07] MEDS ORDERED: NON-FORMULARY NEW DRUG (Omeprazole [Prilosec 20 Mg] 40 MG) PO SCH (06:00)
[2017-11-07] MEDS ORDERED: ROPIVACAINE HCL 150 MG/30 ML INJ ONE (07:12)
[2017-11-07 07:17] VITALS: PULSE 65; RESP 16; TEMP 98.6; O2SAT 95
--- NOTE | 2017-11-07 07:26 | SOAPPROG ---
SOAP Progress Note Assessment/Plan: Assessment: Afebrile. Awake and alert. He has been walking in his room. Mild pain. He received an additional dose of anesthetic in his adductor canal catheter. The catheter was removed this morning by Dr. Perkins. Postop H&H are good. Postop films are good. Plan: PT today. Discharged later today. 11/07/17 07:25 Objective: Vital Signs Temp Pulse Resp BP Pulse Ox 37.0 C 65 16 145/88 H 95 11/07/17 07:17 11/07/17 07:17 11/07/17 07:17 11/07/17 07:17 11/07/17 07:17 Laboratory Results 11/07/17 04:35 11/06/17 11/07/17 11/08/17 05:59 05:59 05:59 Intake Total 2200 Output Total 860 Balance 1340 ICD10 Worksheet Patient Problems: Problems Problem Status Onset Osteoarthritis of right knee Acute CAD (coronary artery disease) Acute Cardiac arrest Acute SHANNAN (obstructive sleep apnea) Acute Osteoarthritis of left knee Acute
--- NOTE | 2017-11-07 07:52 | GDS ---
[f rep st] DISCHARGE SUMMARY ADMISSION DIAGNOSIS: Right knee degenerative arthritis. DISCHARGE DIAGNOSIS: Right knee degenerative arthritis. OPERATIONS PERFORMED: 11/06/2017, a right total knee arthroplasty. POSTOPERATIVE COMPLICATIONS: None. CONDITION ON DISCHARGE: Improved. DESCRIPTION OF HOSPITAL COURSE: The patient was admitted to the hospital on the morning of surgery. His admission white cell count was 3190. H and H 12.1 and 34.5. Platelet count 154,000. The same day, under a combination of Marcaine, spinal anesthesia, IV sedation, and adductor canal block he und erwent a right total knee arthroplasty. Postoperatively, he was restarted on his aspirin 325 mg p.o. daily. He was seen by Physical Therapy and made good progress with ambulation and stairs. His addu ctor canal catheter was left in overnight, and he was redosed on the morning of the first postoperati ve day, and then the catheter was removed. By the time of discharge, he was afebrile and was indepen dent and walking with his walker. DISPOSITION: The patient is discharged to his home. He will continue aspirin 325 mg p.o. daily. He may progress to full weightbearing on the right as tolerated. He will go to outpatient physical the rapy next week. I will see him back in the office on November 21, 2017 at 9:30 a.m. If there are any problems, he is to call me at the office. He has prescriptions for [place] for pain control. /[id number]/MODL
--- NOTE | 2017-11-07 08:01 | POSTANESTH ---
Post Anesthetic Evaluation Respiratory Status: Normal, Stable Level of Consciousness/Mental Status: Can Participate in Eval Pain Control: Adequate, Prn Tx Ordered Nausea/Vomiting Control: Adequate, Prn Tx Ordered Complications Possibly Related to Anesthesia: None Noted (Adductor canal catheter dosed with 25 cc Naropin 0.5% after negative test dose and aspiration. Catheter removed. No signs of infection.)
[2017-11-07] MEDS: ASPIRIN EC 325 MG TAB PO SCH (08:59)
[2017-11-07] MEDS ORDERED: NEBIVOLOL HCL PO SCH (09:00)
[2017-11-07] MEDS ORDERED: ATORVASTATIN CALCIUM 40 MG TAB PO SCH (09:00)
[2017-11-07] MEDS ORDERED: LOSARTAN POTASSIUM 25 MG TAB PO SCH (09:00)
[2017-11-07] MEDS ORDERED: NEBIVOLOL PO SCH (09:00)
[2017-11-07] MEDS ORDERED: FERROUS SULFATE 140 MG TAB.ER PO SCH (09:00)
[2017-11-07] MEDS: FAMOTIDINE 20 MG TAB PO SCH (09:02)
[2017-11-07] MEDS: SENNOSIDES/DOCUSATE SODIUM TAB PO SCH (09:02)
[2017-11-07 09:05] VITALS: BP 142/98
--- NOTE | 2017-11-07 10:16 | ASDISCHSUM ---
Discharge Information Plan Status:Home with No Needs Medically Cleared to Leave: Discharge Date: CM D/C Disposition:Home, Routine, Self-Care ADT D/C Disposition:Home, Routine, Self-Care Projected Discharge Date: Transportation at D/C: Discharge Delay Reason: Follow-Up Date: Discharge Slot: Final Diagnosis: Placement Information Patient Contact Information Contact Name:BETH Relationship: Address:[address] City:[place] Alternate Phone: State/Zip Code:[place] [address] Email: Financial Information Financial Class: Primary Plan Desc:MEDICARE INPATIENT Primary Plan Number:[id number] Secondary Plan Desc:SHELBIE Secondary Plan Number:[id number] Assessment Information CM Exercise Science Internship Assessment CM Note CM Note Notes: Yves is planning to discharge home, independently. His will care for him for the first few days. He has obtained a walker and will be getting leg wraps. He does not believe he will be needing any home health care services. Date Signed: 10/25/2017 12:22 PM Electronically Signed By:Lana Marino [facility] CM Progress Note CM Note CM Note Notes: Pt medically stable for d/c, PT rec home vs. outpatient. No CM d/c needs identified. Date Signed: 11/07/2017 10:16 AM Electronically Signed By:TALIA Carver Intervention Information
== END 2017-11-07 10:49 | disposition home or self-care (01) | DRG 470 ==
LOC: F3N 05:49
PROVIDERS: ADMIT Orthopaedic Surgery; ATTEND Orthopaedic Surgery
PROC: 0SRC0J9 Replacement of Right Knee Joint with Synthetic Substitute, Cemented, Open Approach (ICD-10-PCS; principal; 2017-11-06 07:15)
DX: M17.11 Unilateral primary osteoarthritis, right knee (principal); I25.10 Atherosclerotic heart disease of native coronary artery without angina pectoris; G47.30 Sleep apnea, unspecified; Z95.0 Presence of cardiac pacemaker; Z96.652 Presence of left artificial knee joint; I25.2 Old myocardial infarction
CPT/HCPCS: 97116-GP; 97161-GP; 97165-GO; C1713; G8978-GP-CJ; G8979-GP-CI; G8987-GO-CI; G8988-GO-CI; G8989-GO-CI; J0171; J0690; J1100; J1885; J2250; J2370; J2704; J2795; J3370

== ENCOUNTER → 2018-04-01 | Outpatient (CLI) | payer OTHER | LOC: BHFA 13:45 | PROVIDERS: ATTEND Internal Medicine Cardiovascular Disease | DX: I25.10 Atherosclerotic heart disease of native coronary artery without angina pectoris (principal) ==

== ENCOUNTER 2018-04-08 05:50 | Inpatient (IN) | payer OTHER ==
--- NOTE | 2018-03-25 21:22 | GHP ---
[f rep st] PREOP HISTORY AND PHYSICAL DATE OF ADMISSION: 04/08/2018 He will be an a.m. admission for surgery on 04/08/2018. PROBLEM: Left hip arthritis. HISTORY OF PRESENT ILLNESS: The patient is a 68-year-old man, admitted for a left total hip arthroplasty. He has had progressive pain in the left hip for the past 4 or 5 months. He is limping. Walking is painful. Celebrex helps. He has failed nonsurgical treatment and is admitted for a left total hip arthroplasty. I did his left total knee arthroplasty on 09/10/2017. I did his right total knee arthroplasty on 11/06/2017. PAST MEDICAL HISTORY: He has a history of significant heart disease. 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 He has not had stents. He has had some type of electrical conduction failure. He had some type of ablation procedure by Dr. Cesilia Pradhan, which was successful. He has an implanted pacemaker defibrillator. No history of DVT, hepatitis, MRSA infection, or bleeding problems. He has sleep apnea and uses oxygen at night. CURRENT MEDICATIONS: 1. Atorvastatin 80 mg per day. 2. Bystolic 10 mg per day. 3. Losartan 25 mg per day. 4. Omeprazole 40 mg per day. ALLERGIES: He does not like opiates. Lisinopril causes throat swelling. Metal allergy: None. Latex allergy: None. SOCIAL HISTORY: The patient is . He is retired. He does not smoke cigarettes and rarely drinks alcohol. FAMILY HISTORY: Unknown. PHYSICAL EXAMINATION: VITAL SIGNS: Height 6 feet 1 inch. Weight 215 pounds. BMI 28.4. EYES: Conjunctivae and sclerae are clear. Pupils are round and reactive. MOUTH: Good oral hygiene. No loose teeth. CHEST: Clear. HEART: Regular rhythm. EXTREMITIES: He has a mildly antalgic gait. Full hip extension to 110 degrees of flexion, internal rotation 15 degrees. Abduction 50 degrees. IMAGING: Films show significant degenerative arthritis in both hips with cartilage space narrowing and some osteophyte formation. IMPRESSION: 1. Left hip degenerative arthritis. He is prepared for a left total hip arthroplasty. 2. Status post bilateral total knee arthroplasty. 3. Coronary artery disease with conduction problems. He has a pacemaker/ defibrillator. 4. Treatment for hypertension. 5. Treatment for elevated cholesterol. 6. Treatment for gastroesophageal reflux disease. PLAN: He will undergo a left total hip arthroplasty. The surgery has been described to him, including the risks, complications, expectations, and recovery time. I have discussed with him the risk of dislocation, leg length inequality, infection, and sciatic nerve injury. He understands there is a small chance that he might need revision surgery in the future. All his questions have been answered, and he consents to surgery. /[id number]/MODL MTDD
[2018-04-08] MEDS ORDERED: LIDOCAINE 1% 2 ML INJ ID PRN (06:10)
[2018-04-08] MEDS ORDERED: LR 1,000 ML IV ONE (06:10)
[2018-04-08] MEDS ORDERED: FAMOTIDINE 20 MG TAB PO ONE (06:47)
[2018-04-08] MEDS ORDERED: ceFAZolin 2 GM/DEXTROSE 100 ML IV ONE (06:47)
[2018-04-08] MEDS ORDERED: ACETAMINOPHEN 325 MG TAB PO ONE (06:47)
[2018-04-08] MEDS ORDERED: TRANEXAMIC ACID 1,000 MG in NS 100 ML IV ONE (06:47)
[2018-04-08] MEDS ORDERED: ROPIVACAINE 0.2% 80 MG, EPINEPHrine 0.2 MG, KETOROLAC TROMETHAMINE 30 MG in SYRINGE 0 ML IU ONE (06:47)
[2018-04-08] MEDS ORDERED: POVIDONE-IODINE 20 ML in SODIUM CL IRRIG SOLUTION 500 ML IRR ONE (06:47)
[2018-04-08] MEDS ORDERED: GABAPENTIN 300 MG CAP PO ONE (06:47)
[2018-04-08] MEDS ORDERED: DEXAMETHASONE 4 MG/ML VIAL IVP ONE (06:47)
[2018-04-08] MEDS ORDERED: ONDANSETRON 4 MG/2 ML VIAL IVP ONE (06:47)
[2018-04-08] MEDS ORDERED: MIDAZOLAM 2 MG/2 ML VIAL IVP ONE (06:57)
--- NOTE | 2018-04-08 06:57 | PDANEPAE ---
ANE History of Present Illness L JOSE ANE Past Medical History - Cardiovascular History Hx Hypertension: Yes Hx Arrhythmias: Yes Hx Chest Pain: No Hx Coronary Artery / Peripheral Vascular Disease: Yes Hx CHF / Valvular Disease: No Hx Palpitations: No Cardiovascular History Comment: CAD. HTN. cardiac arrest 08/2015 with icd placed. hyperlipidemia. ischemic cardiomyopathy with EF of 40% - Pulmonary History Hx COPD: No Hx Asthma/Reactive Airway Disease: No Hx Recent Upper Respiratory Infection: No Hx Oxygen in Use at Home: Yes O2 in Use at Home (L/minute): 2l @ noc Hx Sleep Apnea: Yes Sleep Apnea Screening Result - Last Documented: Positive Pulmonary History Comment: ilene positive uses o2 - Neurologic History Hx Cerebrovascular Accident: No Hx Seizures: No Hx Dementia: No - Endocrine History Hx Diabetes: No - Renal History Hx Renal Disorders: No - Liver History Hx Hepatic Disorders: No - Neurological & Psychiatric Hx Hx Neurological and Psychiatric Disorders: No - Cancer History Hx Cancer: No - Congenital Disorder History Hx Congenital Disorders: No - GI History Hx Gastrointestinal Disorders: Yes Gastrointestinal History Comment: GERD - Other Health History Other Health History: ECZEMA. wears glasses for reading. new bilateral hearing aides- pt states he probably wont wear to hospital - Chronic Pain History Chronic Pain: Yes (left hip) - Surgical History Prior Surgeries: right TKA with Tami 11/06/17. left TKA with [place] . AICD placed after cardiac arrest by Kenny 08/14/15. SKULL HEMANGIOMA REMOVED. HERNIA L W/MESH. 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 Pacemaker Model: 2357-40Q Pacemaker Mode: DDDR Pacemaker Set Rate: 70 Date Pacemaker Last Checked: 02/17/18 ANE Patient History - Allergies Allergies/Adverse Reactions: esmolol Allergy (Verified 03/21/18 12:42) unknown reaction hydralazine Allergy (Verified 03/21/18 12:42) Severe skin reaction lisinopril Allergy (Verified 03/21/18 12:42) Swelling/neck,face,throat shellfish derived Allergy (Verified 03/21/18 12:42) Weird reaction- won't describe tramadol Allergy (Verified 03/21/18 12:42) Weird reaction- avoids taking - Home Medications Home medications: home medication list seen and reviewed Home Medications: Aspirin [Aspirin 325 mg (*)] 162.5 mg PO DAILY 08/26/17 [Last Taken 04/01/18] Herbals/Supplements -Info Only 1 ea PO DAILY 08/26/17 [Last Taken 04/01/18] Losartan Potassium [Cozaar 25 mg (*)] 25 mg PO DAILY 08/26/17 [Last Taken ] Omeprazole [Prilosec 20 mg] 40 mg PO DAILY PRN 08/26/17 [Last Taken 04/08/18 05: 00] Acetaminophen [Tylenol 325mg (*)] 650 mg PO Q6HRS PRN 03/21/18 [Last Taken 11/11] - NPO status NPO Since - Liquids (Date): 04/07/18 NPO Since - Liquids (Time): 20:30 NPO Since - Solids (Date): 04/07/18 NPO Since - Solids (Time): 20:30 - Anes Hx Anes Hx: no prior problems - Smoking Hx Smoking Status: Never smoked - Family Anes Hx Family Anes Hx: none Family Hx Anesthesia Complications: none ANE Labs/Vital Signs - Vital Signs Blood Pressure: 153/97 Heart Rate: 69 Respiratory Rate: 16 O2 Sat (%): 95 Height: 186.69 cm Weight: 96.162 kg ANE Physical Exam - Airway Neck exam: FROM Mallampati Score: Class 3 Mouth exam: normal dental/mouth exam - Pulmonary Pulmonary: no respiratory distress - Cardiovascular Cardiovascular: regular rate and rhythym - ASA Status ASA Status: III ANE Anesthesia Plan Anesthesia Plan: spinal Total IV Anesthesia: Yes
[2018-04-08] MEDS ORDERED: ceFAZolin 1 GM/5 ML SYR ONE (06:58)
--- NOTE | 2018-04-08 07:05 | PDHPUP ---
History & Physical Update H&P update statement: This history and physical update is based on an assessment of the patient which was completed after admission or registration (within 24 hours), but prior to the surgery/procedure. H&P update: H&P reviewed & patient examined
[2018-04-08] MEDS ORDERED: LIDOCAINE 2% 100 MG/5 ML SYR ONE (07:15)
[2018-04-08] MEDS ORDERED: PROPOFOL/EMULSION 500 MG/50 ML BOTTLE IV ONE (07:15)
[2018-04-08] MEDS ORDERED: HYDROCODONE/APAP 5/325 TAB PO PRN ×2 (08:00→09:28)
[2018-04-08] MEDS ORDERED: fentaNYL 100 MCG/2 ML INJ IVP PRN (08:00)
[2018-04-08] MEDS ORDERED: PROMETHAZINE HCL 25 MG/ML INJ IVP PRN ×2 (08:00→09:25)
[2018-04-08] MEDS ORDERED: NALOXONE HCL 0.4 MG/ML INJ IVP PRN (08:00)
[2018-04-08] MEDS ORDERED: LABETALOL HCL 5 MG/ML 20 ML MDV IVP PRN (08:00)
[2018-04-08] MEDS ORDERED: ACETAMINOPHEN 500 MG TAB PO PRN (08:00)
[2018-04-08] MEDS ORDERED: HYDROmorphONE/DILAUDID 2 MG/ML INJ IVP PRN (08:00)
[2018-04-08] MEDS ORDERED: oxyCODONE IR 5 MG TAB PO PRN ×2 (08:00→09:25)
[2018-04-08] MEDS ORDERED: MEPERIDINE 25 MG/0.5 ML AMP IVP PRN (08:00)
--- NOTE | 2018-04-08 08:00 | POSTANESTH ---
Post Anesthetic Evaluation Cardiovascular Status: Similar to Pre-Op Cond Respiratory Status: Similar to Pre-op Cond. Level of Consciousness/Mental Status: Can Participate in Eval, Mildly Sleepy, Arousable Pain Control: Adequate, Prn Tx Ordered Nausea/Vomiting Control: Adequate, Prn Tx Ordered Complications Possibly Related to Anesthesia: None Noted
--- NOTE | 2018-04-08 09:16 | POSTOPPROG ---
Post Op Note Date of Operation: 04/08/18 Surgeon: Jason Garrett Primary Counselor: Janie Anesthesiologist: Dr. Addy Barbosa Post-op Diagnosis: Left hip severe degenerative arthritis Procedure: Left total hip arthroplasty Inf/Abcess present in the surg proc area at time of surgery?: No EBL: [id number]
[2018-04-08] MEDS ORDERED: diphenhydrAMINE 25 MG CAP PO PRN (09:25)
[2018-04-08] MEDS ORDERED: ONDANSETRON 4 MG/2 ML VIAL IVP PRN (09:25)
[2018-04-08] MEDS ORDERED: CYCLOBENZAPRINE 10 MG TAB PO PRN (09:25)
[2018-04-08] MEDS ORDERED: TEMAZEPAM 15 MG CAP PO PRN (09:25)
[2018-04-08] MEDS ORDERED: PROMETHAZINE HCL 25 MG SUPPR PR PRN (09:25)
[2018-04-08] MEDS ORDERED: METOCLOPRAMIDE 10 MG/2 ML VIAL IVP PRN (09:25)
[2018-04-08] MEDS ORDERED: BISACODYL 10 MG SUPP PR PRN (09:25)
[2018-04-08] MEDS ORDERED: ONDANSETRON DISINTEGRATING 4 MG TAB PO PRN (09:25)
[2018-04-08] MEDS ORDERED: NS 500 ML IV PRN (09:25)
[2018-04-08] MEDS ORDERED: MAGNESIUM HYDROXIDE 30 ML UDCUP PO PRN (09:25)
[2018-04-08] MEDS ORDERED: DIPHENOXYLATE/ATROPINE LOMOTIL 1 TAB PO PRN (09:25)
[2018-04-08] MEDS ORDERED: LACTULOSE 20 GM/30 ML UDCUP PO PRN (09:25)
[2018-04-08] MEDS ORDERED: POLYETHYLENE GLYCOL 3350 17 GM PKT PO PRN (09:25)
[2018-04-08] MEDS ORDERED: LR 1,000 ML IV SCH (09:30)
--- NOTE | 2018-04-08 09:54 | GOP ---
[f rep st] OPERATIVE REPORT DATE OF OPERATION: 04/08/2018 SURGEON: Jason Garrett MD YOUTH ASSOCIATE: Lavelle Galeas and Benito Tena. ANESTHESIA: Combination of Marcaine, spinal, and IV sedation by. ANESTHESIOLOGIST: Addy Barbosa MD. PREOPERATIVE DIAGNOSIS: Left hip severe degenerative arthritis. POSTOPERATIVE DIAGNOSIS: Left hip severe degenerative arthritis. PROCEDURE PERFORMED: 04/08/2018, left total hip arthroplasty, ceramic femoral head on highly cross-linked polyethylene cup liner. FINDINGS: ESTIMATED BLOOD LOSS: Was about 400 mL. The sponge and needle count were correct on 2 occasions. I used a Keke titanium Trident II hemispherical press-fit shell with an outside diameter of 56 mm. The liner was a Desdemona X3 0 degree highly cross- linked liner with an inside diameter of 36 mm. The femoral component was a high offset Accolade II stem in size 9 and press-fit. The femoral head was a Desdemona Biolox Delta ceramic head with a +2.5 mm neck length and a 36 mm outside diameter. Lavelle Galeas and Benito Tena acted as surgical first assistants. Their assistance was a medical necessity for safe completion of the procedure. DESCRIPTION OF PROCEDURE: The patient was given 2 g of IV Ancef preoperatively within 60 minutes of surgery. He also received IV tranexamic acid at a dose of 1000 mg. He was placed on the operating room table and given spinal anesthesia with Marcaine by Dr. Barbosa. He was then placed supine and given IV sedation. A Macedo catheter was not used. He wore a SHMUEL stocking and SCD on the nonoperative leg. He was rolled to the right lateral decubitus position. The position was secured with the pegboard table attachment. An axillary roll was used, and all pressure points were carefully padded. I was careful to lock his pelvis in a rigid vertical position. His perineum was isolated with plastic adhesive drapes. His left hip and left lower extremity were prepped with ChloraPrep. They were draped free using sterile sheets, stockinette, and Ioban plastic adhesive drape. The [employer] time-out was performed to verify the correct surgical side and site and the correct patient identity. The [place] time-out was also performed. I made a 5-inch straight oblique posterolateral hip skin incision. The subcutaneous tissues were sharply divided, and hemostasis was obtained using electrocautery. The fascia adan was identified and split along the axis of its fibers. I curved posteriorly and proximally, split the fascia of gluteus karson and bluntly split the muscle fibers in line with their orientation. The Charnley self-retaining retractor was inserted. His sciatic nerve was located and protected throughout the procedure. The external rotators and the posterior hip capsule were divided as separate layers at the base of the femoral neck, tagged, and reflected posteriorly. A smooth 8-inch Steinmann pin was inserted vertically into the ilium, superior to the acetabulum. An 8-inch drill bit was inserted vertically into the greater trochanter and parallel to the first pin. The distance between the 2 was measured for leg length reference. His femoral head was dislocated posteriorly. Severe degenerative changes were present on the femoral head. He had an excessive amount of synovial fluid within the joint and a lot of acutely inflamed synovium in the joint. His femoral neck was osteotomized at the appropriate level and inclination. I was careful to preserve all the posterior capsule and most of the anterior capsule. The remnant of his labrum was excised. I prepared the femur first. This allowed me to day care worker the amount of natural femoral neck anteversion. He had 10-12 degrees of natural femoral neck anteversion. His canal was opened laterally with a box chisel. I power reamed and hand broached sequentially up to size 8. The size 8 broach was used as a trial stem. I was careful to lateralize adequately. Appropriate retractors were inserted to expose the acetabulum. The acetabulum was reamed sequentially up to 55 mm. I selected a 56 mm Keke titanium Trident II cluster hole hemispherical shell. This was tapped securely into place in the proper degree of inclination anteversion. I used the transverse acetabular ligament and other acetabular bony landmarks to help me properly orient the cup. I did not think supplemental screw fixation was necessary. Using the 8 broach as a trial stem I selected the 36 mm head with a high offset stem and a 0 neck length. I took an intraoperative cross-table AP pelvis x-ray. I had good position of his cup. I thought the stem was probably undersized by 1 size. The leg lengths were appropriate. I went back and broached with the 9 stem. With the 9 stem with a +2.5 mm neck length the length was appropriate and I had good stability anteriorly and posteriorly. The 0 degree Keke X3 highly cross-linked polyethylene liner was inserted and tapped securely into place. The Desdemona Accolade II stem with high offset in size 9 was inserted press-fit and was very tight. I did 1 final trial reduction and confirmed that the +2.5 mm neck length with a 36 mm head was the proper combination. The Desdemona Biolox Delta ceramic head with an outside diameter of 36 mm and a neck length of +2.5 mm was tapped securely onto the clean trunnion. The acetabulum was irrigated, cleaned, and the hip was reduced 1 final time. He had excellent anterior and posterior stability and appropriate length. I was intentionally lengthening him a couple of mm. 40 mL of the joint anesthetic cocktail were injected into the capsule, the deep musculature, and subcutaneous tissues around the skin edges. The joint was thoroughly irrigated 1 final time with a dilute Betadine solution. His sciatic nerve was reinspected and looked unharmed. The external rotators and the posterior hip capsule were repaired in separate layers with #2 FiberWire sutures through drill holes in the greater trochanter. This provided a strong posterior capsular and external rotator repair. The fascia adan was closed first with two [id number] #2 FiberWire sutures followed by a running #2 barbed Ethicon Stratafix PDO suture. The subcutaneous tissues were closed with a running 0 barbed Ethicon Stratafix Monoderm suture. The skin was closed with a running 3-0 barbed Ethicon Stratafix Monoderm subcuticular suture. The skin edges were reapproximated and sealed with Dermabond glue. The wound was covered with a large Mepilex waterproof dressing. The Mepilex sacral dressing was also applied. A long-leg SHMUEL stocking and SCD were applied to his left lower extremity. He wore a stocking and SCD on the opposite leg during the procedure. An abduction pillow was placed between his knees. He was awakened from anesthesia and rolled to the supine position on his [facility]. He was taken to the PACU in satisfactory condition. There were no recognized intraoperative complications. /[id number]/MODL MTDD
[2018-04-08] MEDS: KETOROLAC 15 MG/1 ML SDV IVP SCH ×3 (12:56→23:03)
[2018-04-08] MEDS: ACETAMINOPHEN 325 MG TAB PO SCH ×3 (12:56→23:03)
[2018-04-08] MEDS: LOSARTAN POTASSIUM 25 MG TAB PO SCH (12:57)
--- NOTE | 2018-04-08 13:46 | PDMN ---
Medical Necessity Medical necessity: [facility] IP only surgery; cpt 93110 L JOSE
[2018-04-08] MEDS: ceFAZolin 2 GM/DEXTROSE 100 ML IV SCH ×2 (15:20→23:03)
[2018-04-08] MEDS: ASPIRIN 325 MG TAB PO SCH (20:37)
[2018-04-08] MEDS: FAMOTIDINE 20 MG TAB PO SCH (20:37)
[2018-04-08] MEDS: SENNOSIDES/DOCUSATE SODIUM TAB PO SCH (20:37)
[2018-04-09] MEDS: KETOROLAC 15 MG/1 ML SDV IVP SCH (06:14)
[2018-04-09] MEDS: ACETAMINOPHEN 325 MG TAB PO SCH (06:14)
[2018-04-09 07:44] VITALS: BP 122/80
[2018-04-09] MEDS ORDERED: POVIDONE-IODINE 20 ML in SODIUM CL IRRIG SOLUTION 500 ML IRR ONE (07:45)
[2018-04-09] MEDS: LOSARTAN POTASSIUM 25 MG TAB PO SCH (08:22)
[2018-04-09] MEDS: ASPIRIN 325 MG TAB PO SCH (08:22)
[2018-04-09] MEDS: FAMOTIDINE 20 MG TAB PO SCH (08:23)
[2018-04-09] MEDS: SENNOSIDES/DOCUSATE SODIUM TAB PO SCH (08:23)
[2018-04-09] MEDS ORDERED: NEBIVOLOL HCL 5 MG TAB PO SCH (09:00)
[2018-04-09] MEDS ORDERED: NEBIVOLOL HCL PO SCH (09:00)
[2018-04-09] MEDS ORDERED: FERROUS SULFATE 140 MG TAB.ER PO SCH (09:00)
[2018-04-09] MEDS ORDERED: PANTOPRAZOLE SODIUM 40 MG TAB PO PRN (09:00)
[2018-04-09] MEDS ORDERED: ATORVASTATIN CALCIUM 40 MG TAB PO SCH (09:00)
--- NOTE | 2018-04-09 09:38 | SOAPPROG ---
SOAP Progress Note Assessment/Plan: Assessment: Afebrile. Awake and alert. He has been up and walking in the [place]. He has been cleared by physical therapy on stairs. He has moderate swelling in the buttocks and mild ecchymosis already. His hemoglobin and hematocrit today are satisfactory. Postop films look excellent. Sciatic nerve intact. Plan: Discharged today. Continue aspirin 325 mg p.o. Daily for 21 days. He may progress to full weight-bearing as tolerated on the left. 04/09/18 09:37 Objective: Vital Signs Temp Pulse Resp BP Pulse Ox 36.7 C 72 18 122/80 H 96 04/09/18 07:43 04/09/18 08:23 04/09/18 07:43 04/09/18 08:23 04/09/18 07:43 Laboratory Results 04/09/18 04:27 04/08/18 04/09/18 04/10/18 05:59 05:59 05:59 Intake Total 2625 Output Total 1700 Balance 925 ICD10 Worksheet Patient Problems: Problems Problem Status Onset Osteoarthritis of left hip Acute CAD (coronary artery disease) Acute Cardiac arrest Acute SHANNAN (obstructive sleep apnea) Acute Osteoarthritis of left knee Acute Osteoarthritis of right knee Acute
--- NOTE | 2018-04-09 10:09 | ASMTLACE ---
LACE Length of stay for Answers: 1 day current admission Acuity / Level of Answers: Yes Care: Did the patient have an inpatient admission? Comorbidities - select Answers: Coronary Artery Disease all that apply Opioid dependence / Chronic pain Other Notes: HTN # of Emergency department Answers: 0 visits in the last 6 months Score: 11 Date Signed: 04/09/2018 10:08 AM Electronically Signed By:Clara Carter RN
--- NOTE | 2018-04-09 10:12 | ASMTCMCOM ---
CM Note CM Note Notes: Patient has been cleared by therapy and medically ready for discharge home today. No CM needs identified at this time. Will discharge home with support of family. CM available for any changes/needs. Plan: Independent Date Signed: 04/09/2018 10:11 AM Electronically Signed By:Clara Carter RN
--- NOTE | 2018-04-09 11:50 | GDS ---
[f rep st] DISCHARGE SUMMARY ADMISSION DIAGNOSIS: Left hip arthritis. DISCHARGE DIAGNOSIS: Left hip arthritis. OPERATION PERFORMED: 04/08/2018, a left total hip arthroplasty, ceramic femoral head on highly cross -linked polyethylene cup liner. SURGEON: Jason Garrett MD. ASSISTANTS: KYLE Snider, and Benito Tena CFA. ANESTHESIA: A combination of Marcaine, spinal, and IV sedation by Dr. Addy Barbosa. CONDITION ON DISCHARGE: Improved. DESCRIPTION OF HOSPITAL COURSE: The patient was admitted to the hospital on the morning of surgery. His admission white count was 3750. The remainder of his CBC was normal. The same day, under a com bination of Marcaine, spinal, and IV sedation, he underwent a left total hip arthroplasty. Postopera tively, he was treated with multimodal DVT prophylaxis, including aspirin. He required a 1 time urin quan catheterization, but he was able to void spontaneously after that. He was seen by Physical Thera py and made good progress with ambulation and stairs. By the time of discharge, he was afebrile, his wound was dry, and he was independent walking with a walker. DISPOSITION: The patient discharged to his home. He may progress to full weightbearing on the left as tolerated. Use an abduction pillow in bed for 3 weeks. Use SHMUEL stockings 1 week. Continue aspir in 325 mg p.o. daily for 21 days. He has a prescription for oxycodone for pain. I will see him back in the office on April 28, 2018. If there are any problems, he is to call me at the office. /[id number]/MODL
== END 2018-04-09 12:28 | disposition home or self-care (01) | DRG 470 ==
LOC: F3N 05:50
PROVIDERS: ADMIT Orthopaedic Surgery; ATTEND Orthopaedic Surgery
PROC: 0SRB04Z Replacement of Left Hip Joint with Ceramic on Polyethylene Synthetic Substitute, Open Approach (ICD-10-PCS; principal; 2018-04-08 07:15)
DX: M16.12 Unilateral primary osteoarthritis, left hip (principal); I10 Essential (primary) hypertension; I25.10 Atherosclerotic heart disease of native coronary artery without angina pectoris; I25.2 Old myocardial infarction; I25.5 Ischemic cardiomyopathy; E78.5 Hyperlipidemia, unspecified; G47.33 Obstructive sleep apnea (adult) (pediatric); Z95.810 Presence of automatic (implantable) cardiac defibrillator; Z96.653 Presence of artificial knee joint, bilateral
CPT/HCPCS: 97116-GP; 97161-GP; 97165-GO; 97530-GP; G8978-GP-CJ; G8979-GP-CI; G8980-GP-CI; G8987-GO-CI; G8988-GO-CI; G8989-GO-CI; J0171; J0690; J1100; J1885; J2001; J2250; J2704; J2795

== ENCOUNTER → 2018-09-11 | Outpatient (CLI) | payer OTHER | LOC: BHFA 13:15 | PROVIDERS: ATTEND Internal Medicine Cardiovascular Disease | DX: I25.10 Atherosclerotic heart disease of native coronary artery without angina pectoris (principal) ==